=== PATIENT | female | born 1980 | race Two or more races ===

== ENCOUNTER 2022-04-25 17:41 | Emergency (ER) | payer OTHER ==
[~2022-04-25] VITALS: Ht 160 cm; Wt 63.5 kg
[2022-04-25] MEDS ORDERED: LEVOTHYROXINE25 MCG PO (18:44)
[2022-04-25] MEDS ORDERED: LIPITOR20 MG PO (18:45)
== END 2022-04-25 22:06 | disposition home or self-care (01) ==
LOC: ER 17:41
DX: T19.2XXA Foreign body in vulva and vagina, initial encounter (principal); X58.XXXA Exposure to other specified factors, initial encounter; Y93.9 Activity, unspecified; Y92.9 Unspecified place or not applicable; Y99.9 Unspecified external cause status